=== PATIENT | male | born 1955 | race Caucasian/White ===

== ENCOUNTER 2022-08-01 07:41 | Outpatient (CLI) | payer OTHER ==
[2022-08-01] MEDS ORDERED: Iopamidol 300 61% 100 ML VIAL FS ONE (09:20)
== END 2022-08-01 07:42 | disposition home or self-care (01) ==
LOC: CSHCT 07:41
PROVIDERS: ATTEND Urology
DX: R31.0 Gross hematuria (principal); N28.1 Cyst of kidney, acquired; N40.0 Benign prostatic hyperplasia without lower urinary tract symptoms; K57.90 Diverticulosis of intestine, part unspecified, without perforation or abscess without bleeding
CPT/HCPCS: 74178; 82565